=== PATIENT | female | born 1940 | race Caucasian/White ===

== ENCOUNTER 2016-11-08 19:29 | Emergency (ER) | payer MEDICARE, BC ==
[2016-11-08] MEDS ORDERED: Sodium Chloride 0.9% 1000 ML 1,000 ML IV STA (20:16)
--- NOTE | 2016-11-08 20:26 | ERPHSYRPT ---
- History of Present Illness Time Seen by Provider: 11/08/16 20:24 Historian: patient, family Exam Limitations: no limitations Patient Subjective Stated Complaint: pt states for 3 days she has pain upon urination. states she also has suprapubic pain. states there is a faint odor but denies any hematuria. pt also complains of some itching to her skin in general, states when she has an illness she has voice changes, itching and chest tightness, states she usually takes benadryl with improvement. Triage Nursing Assessment: pt is aox3, pupils perrl, resps are easy and non labored, radial pulses are strong and equal, abdomen is soft and nontender, bowel sounds are present and normoactivex4. pt is afebrile. pain to the suprapubic region that is nonradiating. Physician History: pt states for 3 days she has pain upon urination. states she also has suprapubic pain. states there is a faint odor but denies any hematuria. pt also complains of some itching to her skin in general, states when she has an illness she has voice changes, itching and chest tightness, states she usually takes benadryl with improvement. Timing/Duration: today Quality: burning Abdominal Pain Onset Location: suprapubic Pain Radiation: no radiation Severity of Pain-Max: mild Severity of Pain-Current: mild Modifying Factors: Improves With: nothing Associated Symptoms: fever/chills, rash, weakness, No vomiting Previous symptoms: different symptoms, recently seen, recent hospitalization, recently treated Allergies/Adverse Reactions: Cephalosporins Allergy (Verified 11/08/16 20:05) meperidine [From Demerol] Allergy (Verified 11/08/16 20:05) morphine Adverse Reaction (Verified 11/08/16 20:05) Hx Tetanus, Diphtheria Vaccination/Date Given: Yes Hx Influenza Vaccination/Date Given: No Hx Pneumococcal Vaccination/Date Given: Yes Immunizations Up to Date: Yes - Review of Systems Constitutional: No Fever, No Chills Eyes: No Symptoms Ears, Nose, & Throat: No Symptoms Respiratory: No Cough, No Dyspnea Cardiac: No Chest Pain, No Edema, No Syncope Abdominal/Gastrointestinal: Abdominal Pain, No Nausea, No Vomiting, No Diarrhea , No Constipation, No Hematemesis, No Hematochezia, No Melena, No Dysphagia, No Appetite Changes Genitourinary Symptoms: No Dysuria Musculoskeletal: No Back Pain, No Neck Pain Skin: No Rash Neurological: No Dizziness, No Focal Weakness, No Sensory Changes Psychological: No Symptoms Endocrine: No Symptoms All Other Systems: Reviewed and Negative - Past Medical History Pertinent Past Medical History: Yes Cardiac History: Coronary Artery Disease Respiratory History: Asthma Endocrine Medical History: Hypothyroidism GI Medical History: Diverticulitis - Past Surgical History Past Surgical History: Yes Gastrointestinal: Cholecystectomy Musculoskeletal: Other Female Surgical History: Tubal Ligation Other Surgical History: lumbar lamenectomy [facility] - Social History Smoking Status: Former smoker Drug Use: none Patient Lives Alone: No - Nursing Vital Signs Nursing Vital Signs: Initial Vital Signs Temperature 97.7 F 11/08/16 19:55 Pulse Rate 82 11/08/16 19:55 Respiratory Rate 18 11/08/16 19:55 Blood Pressure 121/69 11/08/16 19:55 O2 Sat by Pulse Oximetry 96 11/08/16 19:55 Pain Scale Pain Intensity 8 - Physical Exam General Appearance: no apparent distress, alert Eye Exam: PERRL/EOMI, eyes nml inspection Ears, Nose, Throat Exam: normal ENT inspection, pharynx normal, moist mucous membranes Neck Exam: normal inspection, non-tender, supple, full range of motion Respiratory Exam: normal breath sounds, lungs clear, No respiratory distress Cardiovascular Exam: regular rate/rhythm, normal heart sounds Gastrointestinal/Abdomen Exam: soft, No tenderness, No mass Back Exam: normal inspection, normal range of motion, No CVA tenderness, No vertebral tenderness Extremity Exam: normal inspection, normal range of motion, pelvis stable Neurologic Exam: alert, oriented x 3, cooperative, normal mood/affect, nml cerebellar function, sensation nml, No motor deficits Skin Exam: normal color, warm, dry SpO2: 96 Oxygen Delivery: Room Air - Course Nursing assessment & vital signs reviewed: Yes - CT Exams Abdomen/Pelvis CT Interpretation: Tele-radiologist Report Ordered Tests: Active Orders 24 hr Category Date Time Status ABDOMEN AND PELVIS W/0 CONTRAS [CT] Stat Exams 11/08/16 20:22 Taken AMYLASE Stat Lab 11/08/16 20:40 Completed CBC W DIFF Stat Lab 11/08/16 20:40 Completed CMP Stat Lab 11/08/16 20:30 Completed CULTURE,URINE Stat Lab 11/08/16 20:55 Received LIPASE Stat Lab 11/08/16 20:40 Completed Lactic Acid Stat Lab 11/08/16 20:40 Completed UA W/ MICROSCOPIC Stat Lab 11/08/16 20:55 Completed Medication Summary Discontinued Medications Generic Name Dose Route Start Last Admin Trade Name Myriam PRN Reason Stop Dose Admin Sodium Chloride 1,000 mls @ 999 mls/hr 11/08/16 20:16 11/08/16 20:59 Sodium Chloride 0.9% 1000 Ml IV 11/08/16 21:16 999 mls/hr .Q1H1M STA Administration Sodium Chloride Confirm 11/08/16 20:45 Sodium Chloride 0.9% 1000 Ml Administered 11/08/16 20:46 Dose 1,000 mls @ ud .ROUTE .STK-MED ONE Trimethoprim/Sulfamethoxazole 1 tab 11/08/16 21:16 11/08/16 21:22 Bactrim Ds Tablet PO 11/08/16 21:17 1 tab STAT STA Administration Trimethoprim/Sulfamethoxazole Confirm 11/08/16 21:20 Bactrim Ds Tablet Administered 11/08/16 21:21 Dose 1 tab PO .STK-MED ONE Lab/Rad Data: Laboratory Result Diagrams 11/08/16 20:40 11/08/16 20:30 Laboratory Results 11/08/16 11/08/16 11/08/16 Range/Units 20:55 20:40 20:40 WBC (4.0-10.5) K/mm3 RBC (4.1-5.4) M/mm3 Hgb (12.0-16.0) gm/dl Hct (35-47) % MCV (78-100) fl MCH (26-32) pg MCHC (32-36) g/dl RDW (11.5-14.0) % Plt Count (150-450) K/mm3 MPV (6-9.5) fl Gran % (36.0-66.0) % Lymphocytes % (24.0-44.0) % Monocytes % (0.0-12.0) % Eosinophils % (0.00-5.0) % Basophils % (0.0-0.4) % Basophils # (0-0.4) Sodium (136-145) mEq/L Potassium (3.5-5.1) mEq/L Chloride (98-107) mEq/L Carbon Dioxide (21-32) mEq/L Anion Gap (5-15) MEQ/L BUN (9-20) mg/dL Creatinine (0.55-1.30) mg/dl Estimated GFR ML/MIN Glucose (70-110) MG/DL Lactic Acid 1.4 (0.4-2.0) Calcium (8.5-10.1) mg/dL Total Bilirubin (0.2-1.0) mg/dL AST (15-37) U/L ALT (12-78) U/L Alkaline Phosphatase (46-116) U/L Serum Total Protein (6.4-8.2) gm/dL Albumin (3.4-5.0) g/dL Amylase 50 (25-115) U/L Lipase 200 (73-393) U/L Ur Collection Type CLEAN CATCH Urine Color YELLOW (YELLOW) Urine Appearance CLOUDY (CLEAR) Urine pH 6.0 (5-6) Ur Specific [place] 1.010 (1.005-1.025) Urine Protein 30 (Negative) Urine Ketones NEGATIVE (NEGATIVE) Urine Blood 50 (0-5) Suresh/ul Urine Nitrite NEGATIVE (NEGATIVE) Urine Bilirubin NEGATIVE (NEGATIVE) Urine Urobilinogen NORMAL (0-1) mg/dL Ur Leukocyte Esterase 2+ (NEGATIVE) Urine Microscopic RBC 2-5 (0-2) /HPF Urine Microscopic WBC 25-50 (0-5) /HPF Ur Epithelial Cells RARE (FEW) /HPF Urine Bacteria RARE (NEGATIVE) /HPF Hyaline Casts 0-2 (0-2) /LPF Urine Glucose NEGATIVE (NEGATIVE) mg/dL Specimen Received 11/08/16205411/08/16 11/08/16 Range/Units 20:40 20:30 WBC 9.3 (4.0-10.5) K/mm3 RBC 4.32 (4.1-5.4) M/mm3 Hgb 12.4 (12.0-16.0) gm/dl Hct 38.8 (35-47) % MCV 89.8 (78-100) fl MCH 28.7 (26-32) pg MCHC 32.0 (32-36) g/dl RDW 16.4 H (11.5-14.0) % Plt Count 288 (150-450) K/mm3 MPV 9.8 H (6-9.5) fl Gran % 61.2 (36.0-66.0) % Lymphocytes % 30.9 (24.0-44.0) % Monocytes % 7.4 (0.0-12.0) % Eosinophils % 0.3 (0.00-5.0) % Basophils % 0.2 (0.0-0.4) % Basophils # 0.02 (0-0.4) Sodium 138 (136-145) mEq/L Potassium 3.6 (3.5-5.1) mEq/L Chloride 101 (98-107) mEq/L Carbon Dioxide 26.3 (21-32) mEq/L Anion Gap 14.1 (5-15) MEQ/L BUN 11 (9-20) mg/dL Creatinine 0.91 (0.55-1.30) mg/dl Estimated GFR > 60 ML/MIN Glucose 126 H (70-110) MG/DL Lactic Acid (0.4-2.0) Calcium 9.4 (8.5-10.1) mg/dL Total Bilirubin 0.40 (0.2-1.0) mg/dL AST 23 (15-37) U/L ALT 25 (12-78) U/L Alkaline Phosphatase 63 (46-116) U/L Serum Total Protein 7.9 (6.4-8.2) gm/dL Albumin 3.3 L (3.4-5.0) g/dL Amylase (25-115) U/L Lipase (73-393) U/L Ur Collection Type Urine Color (YELLOW) Urine Appearance (CLEAR) Urine pH (5-6) Ur Specific [place] (1.005-1.025) Urine Protein (Negative) Urine Ketones (NEGATIVE) Urine Blood (0-5) Suresh/ul Urine Nitrite (NEGATIVE) Urine Bilirubin (NEGATIVE) Urine Urobilinogen (0-1) mg/dL Ur Leukocyte Esterase (NEGATIVE) Urine Microscopic RBC (0-2) /HPF Urine Microscopic WBC (0-5) /HPF Ur Epithelial Cells (FEW) /HPF Urine Bacteria (NEGATIVE) /HPF Hyaline Casts (0-2) /LPF Urine Glucose (NEGATIVE) mg/dL Specimen Received - Progress Counseled pt/family regarding: lab results, diagnosis, need for follow-up, rad results - Departure Time of Disposition: 21:26 Departure Disposition: Home Clinical Impression: Sigmoid diverticulitis UTI (urinary tract infection) Qualifiers: Urinary tract infection type: acute cystitis Hematuria presence: without hematuria Qualified Code(s): N30.00 - Acute cystitis without hematuria Condition: Stable Critical Care Time: Yes Critical Care Time(excluding separately billable procedures): 30-74 minutes Referrals: GUILLAUME ETIENNE [Primary Care Provider] - Instructions: Urinary Tract Infection (UTI), Diverticulitis Additional Instructions: URINARY TRACT INFECTION 1. You will need to drink plenty of fluids in order to keep your urinary system flushed. These fluids should mainly consist of water and juices. 2. Take medications as directed. You need to completely finish any antiobiotic prescription given. 3. Try to avoid coffee, tea, alcohol, and seasoned foods as they may cause bladder irritation. 4. If signs and symptoms persist after 3-4 days, you will need to follow up with your family physician. 5. Female Patients: A. Avoid intercourse for 3-4 days. B. Empty bladder before and after intercourse to reduce risk of re- infection. C. After emptying bladder, wipe from front to back to reduce the risk of re- infection. Please follow the instructions given to you. Please take your medication as prescribed if given. If symptoms recur or get worse, come back to the emergency room if you cannot reach your primary care physician, or call your primary care physician for an appointment. Again if your symptoms get worse, come back to the emergency room. Thanks for visiting emergency room, and let us take care of you. Prescriptions: Ciprofloxacin [Cipro 500 MG] 500 mg PO BIDAC #20 tablet
[2016-11-08] MEDS ORDERED: Sodium Chloride 0.9% 1000 ML 1,000 ML ONE (20:45)
[2016-11-08 20:47] LABS: BASOPHIL % 0.2 % (0.0-0.4); Eosinophil % 0.3 % (0.00-5.0); Granulocytes % 61.2 % (36.0-66.0); Lymphocytes % 30.9 % (24.0-44.0); Mean Cell Volume 89.8 fl (78-100); Mean Corpuscular Hemoglobin 28.7 pg (26-32); Mean Platelet Volume 9.8 fl (6-9.5); Monocytes % 7.4 % (0.0-12.0); Platelet Count 288 K/mm3 (150-450); Red Blood Count 4.32 M/mm3 (4.1-5.4); Red Cell Distribution Width 16.4 % (11.5-14.0); White Blood Count 9.3 K/mm3 (4.0-10.5)
[2016-11-08 21:09] LABS: LIPASE 200 U/L (73-393)
[2016-11-08 21:11] LABS: ALBUMIN 3.3 g/dL (3.4-5.0); ALKALINE PHOSPHATASE 63 U/L (46-116); ANION GAP 14.1 MEQ/L (5-15); BLOOD UREA NITROGEN 11 mg/dL (9-20); CHLORIDE 101 mEq/L (98-107); Carbon Dioxide 26.3 mEq/L (21-32); Glucose 126 MG/DL (70-110); Potassium 3.6 mEq/L (3.5-5.1); SGOT/AST 23 U/L (15-37); SGPT/ALT 25 U/L (12-78); SODIUM 138 mEq/L (136-145); Total Protein 7.9 gm/dL (6.4-8.2)
[2016-11-08 21:13] LABS: Bilirubin NEGATIVE (NEGATIVE); Blood 50 Ery/ul (0-5); COMPLETE URINE MICROSCOPIC? YES; Collection Type CLEAN CATCH; Glucose NEGATIVE (NEGATIVE); Leukocyte Esterase 2+ (NEGATIVE)
[2016-11-08 21:14] LABS: Bacteria RARE /HPF (NEGATIVE); Epithelial Cells RARE /HPF (FEW); Hyaline Casts 0-2 /LPF (0-2); WBC 25-50 /HPF (0-5)
[2016-11-08 21:15] LABS: ADD URINE CULTURE? YES (NO)
[2016-11-08] MEDS ORDERED: BACTRIM DS TABLET PO STA (21:16)
[2016-11-08] MEDS ORDERED: BACTRIM DS TABLET PO ONE (21:20)
[2016-11-08 21:43] VITALS: BP 117/65; PULSE 78; O2SAT 99
--- NOTE | 2016-11-08 23:38 | XRAY ---
Indication: Lower abdominal/suprapubic pain. Dysuria. History of diverticulitis. Multiple contiguous axial images obtained through the abdomen and pelvis without contrast as ordered. Comparison: None Lung bases demonstrates minimal bibasilar atelectasis/scarring. No consolidation or effusion. Heart is not enlarged. Small hiatal hernia. Noncontrasted stomach and bowel loops appear nonobstructed. Sigmoid diverticulosis with small focus of distal sigmoid diverticulitis and tiny reactive free fluid. No walled off fluid collection or free air. Normal appendix. There are multiple hepatic cysts, largest in the left lobe measuring 4 cm. Previous cholecystectomy. Remaining liver, pancreas, spleen, adrenal glands, kidneys, ureters, bladder, and uterus appear unremarkable for noncontrast exam. Moderate aortoiliac calcifications without AAA. Osseous structures intact with lower lumbar degenerative changes including minimal 2 mm L4 spondylolisthesis on L5. Impression: 1. Sigmoid diverticulosis with distal sigmoid diverticulitis as detailed. Tiny reactive free fluid. 2. Hepatic cysts and small hiatal hernia. 3. Lumbar degenerative changes including minimal grade 1 L4 spondylolisthesis. Comment: Preliminary interpretation was made by [facility]. No critical discrepancy. CTDI 15.00
== END 2016-11-08 21:41 | disposition home or self-care (01) ==
LOC: ED 19:29
DX: K57.92 Diverticulitis of intestine, part unspecified, without perforation or abscess without bleeding (principal); N30.00 Acute cystitis without hematuria; R30.0 Dysuria; R10.9 Unspecified abdominal pain; R82.90 Unspecified abnormal findings in urine; I25.10 Atherosclerotic heart disease of native coronary artery without angina pectoris; E03.9 Hypothyroidism, unspecified
CPT/HCPCS: 36415; 74176; 80053; 81000; 82150; 83605; 83690; 85025; 87077; 87086; 87186; 96360; 96361; 99284; A9270-GY

== ENCOUNTER 2016-12-15 16:03 | Emergency (ER) | payer MEDICARE, BC ==
[2016-12-15] MEDS ORDERED: BENADRYL 50 MG/ML IV ONE (16:09)
[2016-12-15] MEDS ORDERED: Pepcid 20 MG VIAL IV ONE ×2 (16:09→16:13)
[2016-12-15] MEDS ORDERED: solu-MEDROL 125 MG IV ONE (16:09)
[2016-12-15] MEDS ORDERED: BENADRYL 50 MG/ML ONE (16:13)
[2016-12-15] MEDS ORDERED: solu-MEDROL 125 MG ONE (16:13)
--- NOTE | 2016-12-15 16:15 | ERPHSYRPT ---
- History of Present Illness Time Seen by Provider: 12/15/16 16:05 Source: patient Exam Limitations: no limitations Physician History: 76 y/o female brought in by ambulance for anaphylaxis that started just prior to arrival. Pt had eaten some nuts when she started experiencing her throat closing, shortness of breath, tongue and lip swelling. Upon arrival by EMS, patient received epi and benadryl with relief of symptoms. Pt feels much better in the ER. No urticaria. Timing/Duration: abrupt onset Severity: severe ENT Location: mouth, throat Modifying Factors: Improves With: nothing Allergies/Adverse Reactions: Cephalosporins Allergy (Verified 12/15/16 16:18) meperidine [From Demerol] Allergy (Verified 12/15/16 16:18) morphine Adverse Reaction (Verified 12/15/16 16:18) Home Medications: Aspirin 81 mg PO HS 11/11/16 [History] Benazepril HCl 10 mg [Lotensin 10 MG] 10 mg PO DAILY 11/11/16 [History] Hydrochlorothiazide 25 mg PO DAILY 11/11/16 [History] Levothyroxine Sodium 50 Mcg [Synthroid 50 Mcg] 50 mcg PO DAILY 11/11/16 [ History] Nebivolol HCl 5 MG [Bystolic 5 MG] 5 mg PO DAILY 11/11/16 [History] Rosuvastatin Calcium [Crestor] 20 mg PO HS 11/11/16 [History] Hx Tetanus, Diphtheria Vaccination/Date Given: Yes Hx Influenza Vaccination/Date Given: No Hx Pneumococcal Vaccination/Date Given: Yes - Review of Systems Constitutional: No Fever, No Chills Eyes: No Symptoms Ears, Nose, & Throat: No Symptoms, Mouth Swelling, Throat Swelling Respiratory: Dyspnea, No Cough Cardiac: No Chest Pain, No Edema, No Syncope Abdominal/Gastrointestinal: No Abdominal Pain, No Nausea, No Vomiting, No Diarrhea Genitourinary Symptoms: No Dysuria Musculoskeletal: No Back Pain, No Neck Pain Skin: No Rash Neurological: No Dizziness, No Focal Weakness, No Sensory Changes Psychological: No Symptoms Endocrine: No Symptoms All Other Systems: Reviewed and Negative - Past Medical History Pertinent Past Medical History: Yes Neurological History: No Pertinent History ENT History: No Pertinent History Cardiac History: Coronary Artery Disease Respiratory History: Asthma Endocrine Medical History: Hypothyroidism Musculoskeletal History: No Pertinent History GI Medical History: Diverticulitis History: No Pertinent History Psycho-Social History: No Pertinent History Female Reproductive Disorders: No Pertinent History - Past Surgical History Past Surgical History: Yes Neuro Surgical History: No Pertinent History Cardiac: No Pertinent History Respiratory: No Pertinent History Gastrointestinal: Cholecystectomy Genitourinary: No Pertinent History Musculoskeletal: Other Female Surgical History: Tubal Ligation Other Surgical History: lumbar lamenectomy 1980s - Social History Smoking Status: Former smoker Exposure to second hand smoke: No Drug Use: none Patient Lives Alone: No - Nursing Vital Signs Nursing Vital Signs: Initial Vital Signs Temperature 97.7 F 12/15/16 16:05 Pulse Rate 86 12/15/16 16:05 Respiratory Rate 18 12/15/16 16:05 Blood Pressure 135/74 12/15/16 16:05 O2 Sat by Pulse Oximetry 96 12/15/16 16:05 Pain Scale Pain Intensity 0 - Physical Exam General Appearance: no apparent distress, alert Eye Exam: bilateral eye: PERRL, EOMI Nasal Exam: normal inspection Throat Exam: pharynx normal, moist mucus membranes, No tonsillar exudate Neck Exam: supple Cardiovascular/Respiratory Exam: chest non-tender, normal breath sounds, regular rate/rhythm, heart sounds normal Abdominal Exam: non-tender, soft Neurologic Exam: alert, oriented x 3, sensation nml, No motor deficits Skin Exam: normal color, warm, dry - Course Nursing assessment & vital signs reviewed: Yes Ordered Tests: Medication Summary Discontinued Medications Generic Name Dose Route Start Last Admin Trade Name Freq PRN Reason Stop Dose Admin Diphenhydramine HCl 25 mg 12/15/16 16:09 12/15/16 16:15 Benadryl 50 Mg/Ml IV 12/15/16 16:10 25 mg STAT ONE Administration Diphenhydramine HCl Confirm 12/15/16 16:13 Benadryl 50 Mg/Ml Administered 12/15/16 16:14 Dose 50 mg .ROUTE .STK-MED ONE Epinephrine HCl 0.3 mg 12/15/16 16:54 12/15/16 17:10 Epinephrine 1mg/Ml Amp IM 12/15/16 16:55 0.3 mg STAT ONE Administration Epinephrine HCl Confirm 12/15/16 17:06 Epinephrine 1mg/Ml Amp Administered 12/15/16 17:07 Dose 1 mg .ROUTE .STK-MED ONE Famotidine 20 mg 12/15/16 16:09 12/15/16 16:15 Pepcid 20 Mg Vial IV 12/15/16 16:10 20 mg STAT ONE Administration Famotidine Confirm 12/15/16 16:13 Pepcid 20 Mg Vial Administered 12/15/16 16:14 Dose 20 mg IV .STK-MED ONE Methylprednisolone Sodium Succinate 125 mg 12/15/16 16:09 12/15/16 16:15 Solu-Medrol 125 Mg IV 12/15/16 16:10 125 mg STAT ONE Administration Methylprednisolone Sodium Succinate Confirm 12/15/16 16:13 Solu-Medrol 125 Mg Administered 12/15/16 16:14 Dose 125 mg .ROUTE .STK-MED ONE - Progress Progress: improved Progress Note: 12/15/16 17:49 Pt feels better after receiving epi, solumedrol, pepcid and benadryl. Pt will be d/c home on prednisone, pepcid and benadryl for allergic reaction. - Departure Time of Disposition: 17:51 Departure Disposition: Home Clinical Impression: Allergic reaction Qualifiers: Encounter type: initial encounter Qualified Code(s): T78.40XA - Allergy, unspecified, initial encounter Condition: Stable Critical Care Time: Yes Critical Care Time(excluding separately billable procedures): 30-74 minutes Referrals: GUILLAUME ETIENNE [Primary Care Provider] - Instructions: Adverse Drug Reaction -- Allergic Additional Instructions: Return to the ER if you should have any throat swelling, mouth swelling, tongue swelling, shortness of breath or wheezing. Use the medications as prescribed. Prescriptions: Diphenhydramine HCl 25 mg [Benadryl 25 mg Capsule] 25 mg PO Q4H PRN PRN # 20 capsule PRN Reason: Allergies Famotidine 20 mg [Pepcid 20 MG] 20 mg PO DAILY #5 tablet Prednisone 20 mg [Deltasone 20 mg] 20 mg PO DAILY #5 tablet
[2016-12-15 16:26] VITALS: O2SAT 97
[2016-12-15] MEDS ORDERED: EPINEPHRINE 1MG/ML AMP IM ONE (16:54)
[2016-12-15] MEDS ORDERED: EPINEPHRINE 1MG/ML AMP ONE (17:06)
[2016-12-15 17:13] VITALS: BP 125/70; PULSE 76
== END 2016-12-15 18:08 | disposition home or self-care (01) ==
LOC: ED 16:03
DX: T78.40XA Allergy, unspecified, initial encounter (principal)
CPT/HCPCS: 96372; 96374; 96375; 99284; J0171; J1200; J2930

== ENCOUNTER 2017-06-19 11:35 | Day surgery (SDC) | payer MEDICARE, BC ==
[2017-06-19] MEDS ORDERED: DIPRIVAN 200 MG/20 ML IV ONE (11:36)
[2017-06-19] MEDS ORDERED: Ketamine HCl 50 MG/ML IV ONE (11:36)
[2017-06-19] MEDS ORDERED: Lactated Ringers 1,000 ML IV SCH (12:00)
[2017-06-19 17:43] VITALS: O2SAT 96
[2017-06-19 17:49] VITALS: BP 152/70; PULSE 57
--- NOTE | 2017-06-20 10:56 | OP ---
SURGERY DATE/TIME: 06/19/2017 1605 PREOPERATIVE DIAGNOSIS: Evaluation for colostomy take down. POSTOPERATIVE DIAGNOSIS: Evaluation for colostomy take down. PROCEDURE: Colonoscopy. SURGEON: David Neely M.D. ANESTHESIA: MAC. COMPLICATIONS: None. CONDITION: Stable. INDICATION: The patient had major diverticulitis with abscess, fistula and multiple urinary tract infections. She does have a ureteral stent in place. She presents at this time for evaluation prior to consideration of colostomy take down. DESCRIPTION OF PROCEDURE: The scope was placed in the rectum. There residual rectum was normal. There was about 6 inches of residual sigmoid. There were at least 3 or 4 big mucous balls and these were bypassed as much as possible. The very last one was not able to be bypassed. The staple line was not able to be seen. It certainly looked like she is a candidate for take down from this view. It was then placed in the ostomy and placed over the cecum and from this view it was totally normal and it seemed like she is an excellent candidate. I did not really see any diverticula in her bud or just beside her bud although it is certainly possible as this area is slightly squished up but it looked like she had satisfactory mucosa and satisfactory colon to warrant take down. IMPRESSION: The patient appears to be a candidate for take down. She is scheduled in two week.
== END 2017-06-19 17:40 | disposition home or self-care (01) ==
LOC: SDC 11:35
PROVIDERS: ATTEND Surgery
DX: Z43.3 Encounter for attention to colostomy (principal); K57.32 Diverticulitis of large intestine without perforation or abscess without bleeding; K63.2 Fistula of intestine; Z93.3 Colostomy status; Z90.49 Acquired absence of other specified parts of digestive tract
CPT/HCPCS: 99100; J2704